=== PATIENT | male | born 1995 | race African-American/Black ===

== ENCOUNTER → 2023-08-18 | Emergency (ER) | payer OTHER ==
[~2023-08-18] MED LIST: KETOROLAC 30 MG/ML INJ ONE; NA CHLORIDE 0.9% 1,000 ML ONE
--- NOTE | 2023-08-18 18:22 | RAD REPORT ---
EXAM DESCRIPTION: [facility] Single View08/18/2023 6:05 pm CLINICAL HISTORY: Chest pain COMPARISON: none FINDINGS: The lungs appear clear of acute infiltrate. The heart is normal size IMPRESSION: No acute abnormalities displayed
[2023-08-18 18:32] LABS: Specific Gravity 1.025 (1.005-1.030); Urine Bacteria <20 /HPF (<20); Urine Bilirubin NEGATIVE (Negative); Urine Blood Negative (Negative); Urine Clarity Clear (Clear); Urine Color Light-Yellow (Yellow); Urine Glucose NEGATIVE (Negative); Urine Mucus Slight /HPF (None Seen); Urine Protein NEGATIVE (Negative); Urine RBC <5 /HPF (None Seen); Urine Urobilinogen Normal (Normal)
[2023-08-18 18:37] LABS: Absolute Lymphocytes (CBC) 2.4 K/uL (0.7-4.9); Hematocrit 41.9 % (39.6-49.0); Lymphocytes % 40.8 % (15.3-44.8); MCV 84.4 fL (80-100); MPV 8.3 fL (7.6-11.3); Platelets 189 thou/uL (152-406); RBC Red Blood Cell Count 4.96 M/uL (4.33-5.43)
[2023-08-18 18:39] LABS: Barbiturates NEGATIVE (NEGATIVE); Benzodiazepines NEGATIVE (NEGATIVE); Cocaine NEGATIVE (NEGATIVE); METHAMPHETAM NEGATIVE (NEGATIVE); Methadone NEGATIVE (NEGATIVE); Opiates NEGATIVE (NEGATIVE); Phencyclidine NEGATIVE (NEGATIVE); THC Cannibis NEGATIVE (NEGATIVE)
[2023-08-18 18:49] LABS: Protime INR 1.13
[2023-08-18 18:50] LABS: Bilirubin Direct 0.2 mg/dL (0-0.2); Bilirubin Indirect, Calculated 0.8 mg/dL (0.2-0.8); Magnesium 2.1 mg/dL (1.6-2.4); Potassium 3.8 mEq/L (3.5-5.1); Protein, Total 7.9 g/dL (6.4-8.2)
--- NOTE | 2023-08-18 22:38 | RAD REPORT ---
EXAM DESCRIPTION: CT - Chest For Pe Angio - 08/18/2023 10:13 pm CLINICAL HISTORY: Chest pain COMPARISON: None. TECHNIQUE: Dynamically enhanced axial 3 mm thick images of the chest were obtained during administra tion of 100 mL Isovue 370 IV contrast. Coronal and oblique reconstruction images were generated and r eviewed. Exam utilizes a protocol for optimal evaluation of pulmonary arterial tree. Maximum intensity projections 3D imaging was utilized All CT scans are performed using dose optimization technique as appropriate and may include automated exposure control or mA/KV adjustment according to patient size. FINDINGS: The opacification of the pulmonary arteries is mildly suboptimal. No gross pulmonary embol us seen A thoracic aortic aneurysm is not noted. A pleural effusion is not seen. A pericardial effusion is not seen. A lung consolidation is not present. The lungs are mildly to moderately hyperaerated IMPRESSION: No gross pulmonary embolus seen
--- NOTE | 2023-08-18 23:17 | EDPHYS ---
Physician Documentation [facility] Name: Allan Doran Age: 28 yrs Sex: Male : 1995 Arrival Date: 08/18/2023 Time: 17:29 Bed 17 Private MD: ED Physician Felipe Munoz HPI: 08/18 17:45 This 28 yrs old Male presents to ER via Unassigned with complaints of Chest Pain. cp 17:45 Onset: The symptoms/episode began/occurred suddenly, today, about 1500. cp 17:45 The patient or guardian reports chest pain that is located primarily in the anterior cp chest wall, bilaterally. The pain does not radiate. The chest pain is described as a heaviness, like elephant sitting on chest. 17:45 Associated signs and symptoms: Pertinent negatives: abdominal pain, cough, diaphoresis, cp lower extremity pain, lower extremity swelling, vomiting, fever. Duration: The patient or guardian reports a single episode, that is still ongoing, but improving. Severity of pain: in the emergency department the pain has improved is a 5 / 10. EMS care prior to arrival includes: aspirin, nitroglycerin, x 1. Historical: - Allergies: 17:48 Morphine; me1 - PMHx: 17:48 anxiety; Depressive disorder; me1 - Immunization history:: Adult Immunizations up to date. - Social history:: Smoking status: Patient denies any tobacco usage or history of. ROS: 17:45 Constitutional: Negative for body aches, chills, fever, poor PO intake, cp 17:45 Cardiovascular: Positive for chest pain, of the left side of chest, cp Exam: 17:46 ECG was reviewed by the Attending Physician. cp 17:50 Constitutional: The patient appears in no acute distress, alert, awake, cp non-diaphoretic, non-toxic, well developed, well nourished, uncomfortable, 17:50 Head/Face: Normocephalic, atraumatic. cp 17:50 Eyes: Periorbital structures: appear normal, Conjunctiva: normal, no exudate, no injection, Sclera: no appreciated abnormality, Lids and lashes: appear normal, bilaterally, 17:50 ENT: External ear(s): are unremarkable, Nose: is normal, Mouth: Lips: moist, Oral mucosa: pink and intact, moist, Posterior pharynx: is normal, airway is patent, no erythema, no exudate, 17:50 Neck: ROM/movement: is normal, is supple, without pain, no range of motions limitations, 17:50 Chest/axilla: Inspection: normal, Palpation: is normal, no crepitus, no tenderness, 17:50 Cardiovascular: Rate: normal, Rhythm: regular, Edema: is not appreciated, JVD: is not appreciated, 17:50 Respiratory: the patient does not display signs of respiratory distress, Respirations: normal, no use of accessory muscles, no retractions, labored breathing, is not present, Breath sounds: are clear throughout, no decreased breath sounds, no stridor, no wheezing, 17:50 Abdomen/GI: Inspection: abdomen appears normal, Bowel sounds: active, all quadrants, Palpation: abdomen is soft and non-tender, in all quadrants, 17:50 Back: pain, is absent, ROM is normal, 17:50 Neuro: Orientation: to person, place \T\ time. Mentation: is normal, Vital Signs: 17:34 BP 135 / 87; Pulse 68; Resp 16; Temp 98.5(O); Pulse Ox 100% on R/A; Weight 68.95 kg; me1 Height 6 ft. 0 in. ; Pain 5/10; 17:45 BP 134 / 91; Pulse 69; Resp 14; Pulse Ox 100% on R/A; me1 18:15 BP 139 / 90; Pulse 76; Resp 17; Pulse Ox 100% on R/A; me1 19:15 BP 148 / 80; Pulse 68; Resp 14; Pulse Ox 100% on R/A; me1 20:00 BP 141 / 82; Pulse 67; Resp 14; Pulse Ox 100% on R/A; me1 22:09 BP 141 / 75; Pulse 64; Resp 14; Pulse Ox 100% on R/A; me1 23:00 BP 121 / 74; Pulse 60; Resp 15; Pulse Ox 100% on R/A; me1 17:34 Body Mass Index 20.61 (68.95 kg, 182.88 cm) tx1 17:34 Pain Scale: Adult me1 MDM: 17:39 Patient medically screened. [facility] 23:15 Data reviewed: vital signs, nurses notes, lab test result(s), EKG, radiologic studies, cp CT scan, plain films. 23:15 Differential diagnosis: abnormal EKG, acute myocardial infarction, chest wall pain, cp cholecystitis, Cholelithiasis costochondritis, pericarditis, pleurisy, pneumonia, pneumothorax, pulmonary embolus, thoracic aortic disection. I considered the following discharge prescriptions or medication management in the emergency department Medications were administered in the Emergency Department. See MAR. Independent interpretation of the following test(s) in the Emergency Department EKG: See my EKG interpretation above. Counseling: I had a detailed discussion with the patient and/or guardian regarding the historical points, exam findings, and any diagnostic results supporting the discharge/admit diagnosis, lab results, radiology results, to return to the emergency department if symptoms worsen or persist or if there are any questions or concerns that arise at home. Response to treatment: the patient's symptoms have markedly improved after treatment, and as a result, I will discharge patient. Special discussion: Based on the patient's history, exam, and Dx evaluation, there is no indication for emergent intervention or inpatient Tx. It is understood by the patient/guardian that if the Sx's persist or worsen they need to return immediately for re-evaluation. 08/18 17:43 Order name: Basic Metabolic Panel; Complete Time: 19:27 cp 08/18 19:27 Interpretation: Normal except: BUN 20. cp 08/18 17:43 Order name: CBC with Diff; Complete Time: 19:27 cp 08/18 19:27 Interpretation: Reviewed. cp 08/18 17:43 Order name: D-Dimer; Complete Time: 19:27 cp 08/18 19:27 Interpretation: Abnormal: D-DIMER 553. cp 08/18 17:43 Order name: LFT's; Complete Time: 19:27 cp 08/18 19:27 Interpretation: Normal except: GLOB 3.9; A/G 1.0. cp 08/18 17:43 Order name: Magnesium; Complete Time: 19:27 cp 08/18 17:43 Order name: PT-INR; Complete Time: 19:27 cp 08/18 19:28 Interpretation: Reviewed. cp 08/18 17:43 Order name: Troponin HS; Complete Time: 19:27 cp 08/18 19:28 Interpretation: Reviewed. cp 08/18 17:43 Order name: CK; Complete Time: 19:27 cp 08/18 17:43 Order name: UDS; Complete Time: 19:27 cp 08/18 17:47 Order name: Urinalysis W/Microscopic; Complete Time: 19:27 cp 08/18 21:50 Order name: Troponin High Sensitivity; Complete Time: 23:15 cp 08/18 23:15 Interpretation: Reviewed. 08/18 17:43 Order name: XRAY Chest (1 view); Complete Time: 19:27 cp 08/18 19:33 Order name: CT Chest For PE Angio; Complete Time: 23:00 cp 08/18 17:43 Order name: EKG; Complete Time: 17:44 cp 08/18 17:43 Order name: Cardiac monitoring; Complete Time: 18:21 cp 08/18 17:43 Order name: EKG - Nurse/Tech; Complete Time: 18:21 cp 08/18 17:43 Order name: IV Saline Lock; Complete Time: 18:21 cp 08/18 17:43 Order name: Labs collected and sent; Complete Time: 18:21 08/18 17:43 Order name: O2 Per Protocol; Complete Time: 18:21 08/18 17:43 Order name: O2 Sat Monitoring; Complete Time: 18:21 cp EC:46 Rate is 70 beats/min. Rhythm is regular. OK interval is normal. QRS interval is cp prolonged at 102 msec. QT interval is normal. T waves are Inverted in leads aVL, aVR. Interpreted by me. Reviewed by me. Administered Medications: 18:41 Drug: Ketorolac IVP 15 mg IVP once Route: IVP; Site: left forearm; tx1 19:49 Follow up: Response: No adverse reaction; Pain is decreased me1 18:41 Drug: NS 0.9% IV 1000 ml IV at 999 ml/hr Per protocol; 1000 mL bolus Route: IV; Rate: me1 999 ml/hr; Site: left forearm; 19:49 Follow up: IV Status: Completed infusion; IV Intake: 1000ml me1 Disposition Summary: 08/18/23 23:16 Discharge Ordered Notes: Location: Home cp Problem: new cp Symptoms: have improved cp Condition: Stable cp Diagnosis - Chest pain, unspecified cp Followup: cp - With: Private Physician - When: 2 - 3 days - Reason: Recheck today's complaints Discharge Instructions: - Discharge Summary Sheet cp - Nonspecific Chest Pain, Adult cp - Aspirin and Your Heart cp Forms: - Medication Reconciliation Form cp - Thank You Letter cp - Antibiotic Education cp - Prescription Opioid Use cp - Patient Portal Instructions cp - Leadership Thank You Letter cp Prescriptions: - Ibuprofen 800 mg Oral Tablet - take 1 tablet ORAL route every 8 hours As needed take with food; 30 tablet; cp Refills: 0, Product Selection Permitted Signatures: Dispatcher [employer] Felipe Cho MD MD cha Page, Corey PA PA Sally Claire, RN RN me1
--- NOTE | 2023-08-18 23:17 | ER ---
Nurse's Notes [facility] Name: Allan Doran Age: 28 yrs Sex: Male : 1995 Arrival Date: 08/18/2023 Time: 17:29 Bed 17 Private MD: Diagnosis: Chest pain, unspecified Presentation: 08/18 17:34 Chief complaint: EMS states: toned out for chest pain, sudden onset while sleeping, sob me1 with pain. Given 162mg ASA and nitro given by the [facility]. Given 162mg ASA by EMS, o2 at 2 LPM via NC and 20 g to left forearm started. pain is 5/10, "like an elephant is sitting on chest". Coronavirus screen: Vaccine status: Patient reports being unvaccinated. Ebola Screen: No symptoms or risks identified at this time. Initial Sepsis Screen: Does the patient meet any 2 criteria? No. Patient's initial sepsis screen is negative. Does the patient have a suspected source of infection? No. Patient's initial sepsis screen is negative. Risk Assessment: Do you want to hurt yourself or someone else? Patient reports no desire to harm self or others. Onset of symptoms was August 18, 2023 at 15:00. 17:34 Method Of Arrival: EMS: [facility] 17:34 Acuity: RAMIN 2 me1 Triage Assessment: 17:48 General: Appears uncomfortable, well groomed, well developed, well nourished, Behavior me1 is calm, cooperative, appropriate for age. Pain: Complains of pain in left chest Pain does not radiate. Pain currently is 5 out of 10 on a pain scale. Quality of pain is described as heavy, Pain began suddenly, Is continuous. Neuro: Level of Consciousness is awake, alert, obeys commands, Oriented to person, place, time, situation, Appropriate for age. Cardiovascular: Capillary refill < 3 seconds Patient's skin is warm and dry. Respiratory: Airway is patent Respiratory effort is even, unlabored, Respiratory pattern is regular, symmetrical. Historical: - Allergies: 17:48 Morphine; me1 - PMHx: 17:48 anxiety; Depressive disorder; me1 - Immunization history:: Adult Immunizations up to date. - Social history:: Smoking status: Patient denies any tobacco usage or history of. Screenin:34 [facility] ED Fall Risk Assessment (Adult) History of falling in the last 3 months, me1 including since admission No falls in past 3 months (0 pts) Confusion or Disorientation No (0 pts) Intoxicated or Sedated No (0 pts) Impaired Gait No (0 pts) Mobility Assist Device Used No (0 pt) Altered Elimination No (0 pt) Score/Fall Risk Level 0 - 2 = Low Risk Maintained a safe environment, Provided non-skid footwear, Hourly rounding (assess needs \\T\\ fall precautionary measures) done. Abuse screen: Denies threats or abuse. Nutritional screening: No deficits noted. Tuberculosis screening: No symptoms or risk factors identified. Assessment: 17:34 General: See triage assessment. . Pain: Complains of pain in left chest Pain does not me1 radiate. Pain currently is 5 out of 10 on a pain scale. Quality of pain is described as heavy, Pain began suddenly, Is continuous. Vital Signs: 17:34 BP 135 / 87; Pulse 68; Resp 16; Temp 98.5(O); Pulse Ox 100% on R/A; Weight 68.95 kg; me1 Height 6 ft. 0 in. ; Pain 5/10; 17:45 BP 134 / 91; Pulse 69; Resp 14; Pulse Ox 100% on R/A; me1 18:15 BP 139 / 90; Pulse 76; Resp 17; Pulse Ox 100% on R/A; me1 19:15 BP 148 / 80; Pulse 68; Resp 14; Pulse Ox 100% on R/A; me1 20:00 BP 141 / 82; Pulse 67; Resp 14; Pulse Ox 100% on R/A; me1 22:09 BP 141 / 75; Pulse 64; Resp 14; Pulse Ox 100% on R/A; me1 23:00 BP 121 / 74; Pulse 60; Resp 15; Pulse Ox 100% on R/A; me1 17:34 Body Mass Index 20.61 (68.95 kg, 182.88 cm) [facility] 17:34 Pain Scale: Adult [facility] ED Course: 17:30 Patient arrived in ED. ar1 17:34 Patient has correct armband on for positive identification. Bed in low position. Call ar1 light in reach. Side rails up X2. Provided Education on: POC. Verbalized understanding.. Client placed on continuous cardiac and pulse oximetry monitoring. NIBP monitoring applied. oil lease operator on. Pulse ox on. 17:34 No provider procedures requiring assistance completed. Maintain EMS IV. Dressing me1 intact. Good blood return noted. Site clean \\T\\ dry. Gauge \\T\\ site: 20 gauge LFA. Patient maintains SpO2 saturation greater than 95% on room air. 17:35 Felipe Diggs PA is PHCP. cp 17:35 Felipe Munoz MD is Attending Physician. cp 17:48 Triage completed. me1 17:48 Arm band placed on Patient placed in an exam room. me1 18:04 Sally Loredo, GASPER is Primary Nurse. me1 18:07 XRAY Chest (1 view) In Process Unspecified. EDMS 18:21 Basic Metabolic Panel Sent. me1 18:21 CBC with Diff Sent. me1 18:22 D-Dimer Sent. me1 18:22 LFT's Sent. me1 18:22 Magnesium Sent. me1 18:22 PT-INR Sent. me1 18:22 Troponin HS Sent. me1 18:22 UDS Sent. me1 18:22 Urinalysis W/Microscopic Sent. me1 22:14 CT Chest For PE Angio In Process Unspecified. EDMS 22:47 Troponin High Sensitivity Sent. me1 23:26 IV discontinued, intact, bleeding controlled, No redness/swelling at site. Pressure me1 dressing applied. Administered Medications: 18:41 Drug: Ketorolac IVP 15 mg IVP once Route: IVP; Site: left forearm; me1 19:49 Follow up: Response: No adverse reaction; Pain is decreased me1 18:41 Drug: NS 0.9% IV 1000 ml IV at 999 ml/hr Per protocol; 1000 mL bolus Route: IV; Rate: me1 999 ml/hr; Site: left forearm; 19:49 Follow up: IV Status: Completed infusion; IV Intake: 1000ml me1 Medication: 17:34 VIS not applicable for this client. me1 Intake: 19:49 IV: 1000ml; Total: 1000ml. me1 Outcome: 23:16 Discharge ordered by . cp 23:33 Discharged to longterm with guards me1 23:33 Condition: stable 23:33 Discharge instructions given to patient, guards Instructed on discharge instructions, follow up and referral plans. medication usage, Demonstrated understanding of instructions, follow-up care, medications, Prescriptions given X 1, 23:37 Patient left the ED. me1 Signatures: Dispatcher [employer] EDDE Felipe Dgigs PA PA cp Eddleman, Michelle, RN RN me1
[2023-08-19 00:49] VITALS: BP 121/74; TEMP 98.5; O2SAT 100
--- NOTE | 2023-08-20 17:03 | EKG ---
Test Date: 2023-08-18 Test Time: 17:41:05 [employer] Specialist: MEASUREMENT RESULTS: Intervals: Rate: 70 DC: 162 QRSD: 102 QT: 364 QTc: 393 [place]: P: 33 DC: 162 QRS: 87 T: 63 INTERPRETIVE STATEMENTS: Normal sinus rhythm Incomplete right bundle branch block Borderline ECG No previous ECG available for comparison Electronically Signed On 08-20-23 16:58:02 [employer] CONSULTANT by Kem Tirado
== END ==
LOC: ER 17:29
DX: R07.89 Other chest pain (principal); Z88.5 Allergy status to narcotic agent
CPT/HCPCS: 96361; 93005; 85025; 81001; 80048; 36415; 83735; 82550; 85610; 85379; 80076; 84484 ×2; 80307; 71275; 71045; 96374; 99285; Q9967; J7030

== ENCOUNTER → 2023-09-30 | Emergency (ER) | payer OTHER ==
[2023-09-30 19:44] LABS: Absolute Lymphocytes (CBC) 2.1 K/uL (0.7-4.9); Hematocrit 35.7 % (39.6-49.0); Lymphocytes % 34.2 % (15.3-44.8); MCV 84.9 fL (80-100); MPV 8.2 fL (7.6-11.3); Platelets 217 thou/uL (152-406)
--- NOTE | 2023-09-30 20:00 | RAD REPORT ---
EXAM DESCRIPTION: Om[facility] Single View09/30/2023 6:34 pm CLINICAL HISTORY: Chest pain COMPARISON: August 2023 FINDINGS: The lungs appear clear of acute infiltrate. The heart is normal size IMPRESSION: No acute abnormalities displayed
[2023-09-30 20:10] LABS: Protime INR 1.09
[2023-09-30 20:32] LABS: Albumin 3.7 g/dL (3.4-5.0); Bilirubin Direct 0.2 mg/dL (0-0.2); Bilirubin Indirect, Calculated 0.3 mg/dL (0.2-0.8); Bilirubin Total 0.5 mg/dL (0.2-1.0); Magnesium 1.9 mg/dL (1.6-2.4); Potassium 3.7 mEq/L (3.5-5.1); Protein, Total 6.9 g/dL (6.4-8.2); Troponin High Sensitivity 5.5 pg/mL (<58.9)
--- NOTE | 2023-09-30 22:25 | RAD REPORT ---
EXAM DESCRIPTION: CT - Chest For Pe Angio - 09/30/2023 10:15 pm CLINICAL HISTORY: Chest pain COMPARISON: August 2023 TECHNIQUE: Dynamically enhanced axial 3 mm thick images of the chest were obtained during administra tion of 100 mL Isovue 370 IV contrast. Coronal and oblique reconstruction images were generated and r eviewed. Exam utilizes a protocol for optimal evaluation of pulmonary arterial tree. Maximum intensity projections 3D imaging was utilized All CT scans are performed using dose optimization technique as appropriate and may include automated exposure control or mA/KV adjustment according to patient size. FINDINGS: A pulmonary embolus is not seen. A thoracic aortic aneurysm is not noted. A pleural effusion is not seen. A pericardial effusion is not seen. A lung consolidation is not present. IMPRESSION: Negative for a pulmonary embolism.
--- NOTE | 2023-09-30 22:41 | EDPHYS ---
Physician Documentation [facility] Name: Allan Doran Age: 28 yrs Sex: Male : 1995 Arrival Date: 09/30/2023 Time: 17:45 Bed 7 Private MD: ED Physician Felipe Munoz HPI: 09/30 18:15 This 28 yrs old Black Male presents to ER via EMS with complaints of Chest Pain. cp 18:15 The patient or guardian reports chest pain that is located primarily in the anterior cp chest wall, left. The pain does not radiate. The chest pain is described as sharp. 18:15 Associated signs and symptoms: Pertinent positives: cough, Pertinent negatives: cp abdominal pain, lower extremity pain, lower extremity swelling, shortness of breath, syncope. Duration: The patient or guardian reports a single episode, that is still ongoing, onset this morning. Severity of pain: in the emergency department the pain is unchanged. Historical: - Allergies: 17:55 Morphine; ph 17:55 SHELLFISH; ph - Home Meds: 17:55 carbamazepine 200 mg oral Tablet, Extended Release 12 hr 2 tabs nightly [Active]; ph - PMHx: 17:55 Anxiety; depressive disorder; ph - Immunization history:: Adult Immunizations unknown. - Social history:: Smoking status: unknown. ROS: 18:20 Cardiovascular: Positive for chest pain, Negative for edema, palpitations, cp 18:20 Eyes: Negative for injury, pain, redness, and discharge, cp 18:20 Constitutional: Negative for body aches, chills, fever, poor PO intake, 18:20 ENT: Negative for drainage from ear(s), ear pain, sore throat, difficulty swallowing, difficulty handling secretions, 18:20 Respiratory: Positive for cough, Negative for shortness of breath, wheezing, 18:20 Abdomen/GI: Negative for abdominal pain, vomiting, diarrhea, constipation, 18:20 Back: Negative for pain at rest, pain with movement, 18:20 Neuro: Negative for altered mental status, dizziness, headache, numbness, syncope, weakness, 18:20 All other systems are negative, Exam: 18:25 Constitutional: The patient appears in no acute distress, alert, awake, comfortable, cp non-diaphoretic, non-toxic, well developed, well nourished, 18:25 Head/Face: Normocephalic, atraumatic. cp 18:25 Eyes: Periorbital structures: appear normal, Conjunctiva: normal, no exudate, no injection, Sclera: no appreciated abnormality, Lids and lashes: appear normal, bilaterally, 18:25 ENT: External ear(s): are unremarkable, Nose: is normal, Mouth: Lips: moist, Oral mucosa: pink and intact, moist, Posterior pharynx: Airway: no evidence of obstruction, patent, 18:25 Neck: ROM/movement: is normal, is supple, without pain, no range of motions limitations, no meningismus, no nuchal rigidity, 18:25 Chest/axilla: Inspection: normal, Palpation: crepitus, is not appreciated, tenderness, that is mild, of the left clavicle and anterior aspect of left upper chest, 18:25 Cardiovascular: Rate: normal, Rhythm: regular, Edema: is not appreciated, JVD: is not appreciated, 18:25 Respiratory: the patient does not display signs of respiratory distress, Respirations: normal, no use of accessory muscles, no retractions, labored breathing, is not present, Breath sounds: are clear throughout, no decreased breath sounds, no stridor, no wheezing, 18:25 Abdomen/GI: Inspection: abdomen appears normal, Palpation: abdomen is soft and non-tender, in all quadrants, 18:25 Back: pain, is absent, ROM is normal, 18:25 Neuro: Orientation: to person, place \T\ time. Mentation: is normal, Motor: moves all fours, strength is normal, Sensation: is normal, Vital Signs: 17:51 BP 139 / 87; Pulse 62; Resp 18; Temp 97.9; Pulse Ox 99% on R/A; Weight 68.04 kg; Height ph 5 ft. 10 in. ; 19:27 BP 137 / 91; Pulse 63; Resp 16; Pulse Ox 98% on R/A; tl4 20:58 BP 133 / 90; Pulse 58; Pulse Ox 100% on R/A; tm6 22:41 BP 134 / 85; Pulse 49; Resp 19; Pulse Ox 100% on R/A; Pain 0/10; tm6 17:51 Body Mass Index 21.52 (68.04 kg, 177.8 cm) ph 22:41 Pain Scale: Adult tm6 MDM: 17:54 Patient medically screened. cp 22:40 Data reviewed: vital signs, nurses notes, lab test result(s), EKG, radiologic studies, cp CT scan, plain films. 22:40 Differential diagnosis: abnormal EKG, acute myocardial infarction, acute pericarditis, cp costochondritis, pericarditis, pleurisy, pneumonia, pneumothorax, pulmonary embolus. I considered the following discharge prescriptions or medication management in the emergency department Medications were administered in the Emergency Department. See MAR. Independent interpretation of the following test(s) in the Emergency Department EKG: See my EKG interpretation above. Counseling: I had a detailed discussion with the patient and/or guardian regarding the historical points, exam findings, and any diagnostic results supporting the discharge/admit diagnosis, lab results, radiology results, the need for outpatient follow up, a family practitioner, to return to the emergency department if symptoms worsen or persist or if there are any questions or concerns that arise at home. Response to treatment: the patient's symptoms have mildly improved after treatment, and as a result, I will discharge patient. Special discussion: Based on the patient's history, exam, and Dx evaluation, there is no indication for emergent intervention or inpatient Tx. It is understood by the patient/guardian that if the Sx's persist or worsen they need to return immediately for re-evaluation. 09/30 17:57 Order name: Basic Metabolic Panel; Complete Time: 20:33 cp 09/30 20:33 Interpretation: Normal except: CL 111. cp 09/30 17:57 Order name: CBC with Diff; Complete Time: 20:33 cp 09/30 20:33 Interpretation: Normal except: RBC 4.20; HGB 11.7; HCT 35.7. cp 09/30 17:57 Order name: D-Dimer; Complete Time: 20:33 cp 09/30 20:34 Interpretation: Abnormal: D-DIMER 623. cp 09/30 17:57 Order name: LFT's; Complete Time: 20:33 cp 09/30 17:57 Order name: Magnesium; Complete Time: 20:33 cp 09/30 17:57 Order name: PT-INR; Complete Time: 20:33 cp 09/30 17:57 Order name: Troponin HS; Complete Time: 20:33 cp 09/30 17:57 Order name: COVID-19 SARS RT PCR; Complete Time: 20:33 cp 09/30 17:57 Order name: XRAY Chest (1 view); Complete Time: 20:33 cp 09/30 20:34 Order name: CT Chest For PE Angio; Complete Time: 22:36 cp 09/30 22:36 Interpretation: Report reviewed. 09/30 17:57 Order name: EKG; Complete Time: 17:58 cp 09/30 17:57 Order name: Cardiac monitoring; Complete Time: 19:32 cp 09/30 17:57 Order name: EKG - Nurse/Tech; Complete Time: 19:58 cp 09/30 17:57 Order name: IV Saline Lock; Complete Time: 19:32 cp 09/30 17:57 Order name: Labs collected and sent; Complete Time: 19:32 cp 09/30 17:57 Order name: O2 Per Protocol; Complete Time: 19:32 cp 09/30 17:57 Order name: O2 Sat Monitoring; Complete Time: 19:32 cp Administered Medications: 19:32 Drug: Ketorolac IVP 15 mg IVP once Route: IVP; Site: right antecubital; tl4 19:32 Drug: NS 0.9% IV 1000 ml IV at 1 bolus Per protocol; 1000 mL bolus Route: IV; Rate: 1 tl4 bolus; Site: right antecubital; Disposition Summary: 09/30/23 22:41 Discharge Ordered Notes: Location: Home cp Problem: new cp Symptoms: have improved cp Condition: Stable cp Diagnosis - Chest pain, unspecified cp - SARS-associated coronavirus as the cause of diseases classified elsewhere cp Followup: cp - With: Private Physician - When: 2 - 3 days - Reason: Recheck today's complaints Discharge Instructions: - Discharge Summary Sheet cp - Aspirin and Your Heart cp - COVID-19 cp - How to Protect Yourself and Others - [facility] (09/30/2021) cp - 10 Things You Can Do to Manage Your COVID-19 Symptoms at Home - [facility] (02/18/2021) cp - COVID-19: Quarantine and Isolation - [facility] (11/02/2021) cp Forms: - Medication Reconciliation Form cp - Thank You Letter cp - Antibiotic Education cp - Prescription Opioid Use cp - Patient Portal Instructions cp - Leadership Thank You Letter cp Prescriptions: - Diclofenac Sodium 75 mg Oral Tablet Sustained Release - take 1 tablet ORAL route 2 times per day; 30 tablet; Refills: 0, Product cp Selection Permitted Signatures: Dispatcher [employer] Nery Tucker, RN RN Caterina, SHANTHI Wang cp, Toni RN RN tl4
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
[2023-10-01 01:08] VITALS: TEMP 97.9
[2023-10-01 01:37] VITALS: BP 134/85; O2SAT 100
--- NOTE | 2023-10-01 14:29 | EKG ---
Test Date: 2023-09-30 Test Time: 19:39:47 Sheep Sorter: STEVEN MEASUREMENT RESULTS: Intervals: Rate: 58 ME: 170 QRSD: 110 QT: 408 QTc: 400 Wolsey: P: 46 ME: 170 QRS: 35 T: 54 INTERPRETIVE STATEMENTS: Sinus bradycardia Otherwise normal ECG Compared to ECG 08/18/2023 17:41:05 Sinus rhythm no longer present Incomplete right bundle-branch block no longer present Electronically Signed On 10-01-23 14:26:17 CUSTOMER EXPERIENCE RETAIL CLERK by Kem Tirado
== END ==
LOC: ER 17:45
DX: U07.1 COVID-19 (principal); Z88.5 Allergy status to narcotic agent; Z91.013 Allergy to seafood
CPT/HCPCS: 93005; 85025; 80048; 36415; 83735; 85610; 85379; 80076; 84484; 87635; 71275; 71045; Q9967; 96374; 99285; J7030